=== PATIENT | male | born 1970 | race Caucasian/White ===

== ENCOUNTER 2017-10-09 20:38 | Emergency (ER) | payer SELFPAY ==
[~2017-10-09] VITALS: Ht 180.3 cm; Wt 120.0 kg
[2017-10-09 21:38] VITALS: BP 163/89; PULSE 86; RESP 18; TEMP 97.8; O2SAT 97
[2017-10-09] MEDS ORDERED: CEPH-460 PO (22:33)
[2017-10-09] MEDS ORDERED: BACT800T5 PO (22:33)
--- NOTE | 2017-10-09 22:37 | PD ---
HPI Chief Complaint: Bite or Sting Time Seen by Provider: 22:26 Travel History International Travel<30 days: No Contact w/Intl Traveler<30days: No Traveled to known affect area: No History of Present Illness HPI This is a 47-year-old male presents for evaluation of area of redness in the left lower abdominal wall. He reports that it started 2 days ago as what appeared to be a small pimple. He hypothesized that he was bitten by a bug although he does not recall any bug bites or puncture wounds. He reports that since then he has had increased redness of the skin with associated pain. Pain is moderate, burning, worse with palpation. No aggravating or relieving factors. He denies any drainage, fevers, chills, nausea, vomiting, chest pain, shortness of breath. No other complaints at this time. [facility] [place] Past Medical History Medical History: Denies Significant Hx Diminished Hearing: No Tetanus Vaccination: Unknown Influenza Vaccination: No Past Surgical History Surgical History: No Previous Surgery Social History Alcohol Use: Yes Tobacco Use: Yes (1PPD) Substance Use: No Allergies-Medications (Allergen,Severity, Reaction): Coded Allergies: No Known Allergies (Unverified , 10/09/17) Reported Meds & Prescriptions Reported Meds & Active Scripts Active Keflex (Cephalexin) 500 Mg Cap 500 Mg PO Q8H Bactrim DS (Sulfamethoxazole-Trimethoprim) 800-160 Mg Tab 1 Tab PO BID Review of Systems Except as stated in HPI: all other systems reviewed are Neg Physical Exam Narrative GENERAL: Well-developed well-nourished male in no acute distress SKIN: Warm and dry. There is an area of erythema on the left lower abdominal wall with some central induration and excoriation. There is no fluctuance or drainage. The area was circled with a surgical marker. HEAD: Atraumatic. Normocephalic. EYES: Pupils equal and round. No scleral icterus. No injection or drainage. ENT: No nasal bleeding or discharge. Mucous membranes pink and moist. NECK: Trachea midline. No JVD. CARDIOVASCULAR: Regular rate and rhythm. No murmur appreciated. RESPIRATORY: No accessory muscle use. Clear to auscultation. Breath sounds equal bilaterally. GASTROINTESTINAL: Abdomen soft, non-tender, nondistended. Hepatic and splenic margins not palpable. Data Data Last Documented VS Vital Signs Date Time Temp Pulse Resp B/P (MAP) Pulse Ox O2 Delivery O2 Flow Rate FiO2 10/09/17 21:38 97.8 86 18 163/89 (113) 97 Orders Orders Sulfamet-Trimeth Ds 800-160 Mg (Bactrim (10/09/17 22:45) Cephalexin (Keflex) (10/09/17 22:45) Ed Discharge Order (10/09/17 22:32) MDM Medical Decision Making Medical Screen Exam Complete: Yes Emergency Medical Condition: Yes Medical Record Reviewed: Yes Differential Diagnosis Cellulitis, abscess, erysipelas, panniculitis Narrative Course Examination is consistent with cellulitis to the left lower abdominal wall. The area was circled with a surgical marker. Plan is to treat him as an outpatient Bactrim and Keflex, first dose provided tonight. Discussed signs and symptoms that would warrant returning to the emergency room. He is stable for discharge. Diagnosis Primary Impression: Cellulitis Additional Instructions: Medication as prescribed. Warm compresses several times a day 15 minutes at a time. Follow-up with primary care physician as needed. Return for any new or worsening symptoms. Med/Other Pt SpecificInfo: Prescription(s) given Scripts Cephalexin (Keflex) 500 Mg Cap 500 MG PO Q8H for Infection, #30 CAP 0 Refills Prov: Partha Grissom MD 10/09/17 Sulfamethoxazole-Trimethoprim (Bactrim DS) 800-160 Mg Tab 1 TAB PO BID for Infection, #20 TAB 0 Refills Prov: Partha Grissom MD 10/09/17 Disposition: 01 DISCHARGE HOME Condition: Stable Chris Stokes Oct 09, 2017 22:37
[2017-10-09] MEDS ORDERED: SULFAMETHOXAZOLE-TRIMETHOPRIM DS 800-160 MG TAB PO ONE (22:45)
[2017-10-09] MEDS ORDERED: CEPHALEXIN MONOHYDRATE 500 MG CAP PO ONE (22:45)
== END 2017-10-09 23:08 | disposition home or self-care (01) ==
LOC: NEPC 20:38
DX: L03.311 Cellulitis of abdominal wall (principal); F17.200 Nicotine dependence, unspecified, uncomplicated
CPT/HCPCS: 99283